=== PATIENT | female | born 1955 | race Caucasian/White ===

== ENCOUNTER 2017-02-06 09:16 | Day surgery (SDC) | payer MEDICARE, OTHER ==
--- NOTE | ~2017-02-06 | EGD ---
EGD REPORT [facility] [address] [place] [address] NAME: KATE SCOTT : [birth year] STATUS : REG [facility]#: [id number] AGE: 61 ADM/REG DATE : 02/06/17 MR#: [id number] REPORT SERV DATE: 02/06/17 DICTATED BY: JEAN-CLAUDE LAWS DATE: 02/06/17 REPORT STATUS : Draft [facility]ANS[facility] BY: [facility] DATE: 02/06/17 Endoscopy Center Patient Name: Kate Scott Date of : 1955 Attending MD: JEAN-CLAUDE LAWS MD Procedure Date No Time: 02/06/2017 Procedure: Colonoscopy Indications: High risk colon cancer surveillance: Personal history of colonic polyps, FH of Colon Cancer - multiple second-degree relatives Referring MD: NIR FORBES MD Medicines: as per anesthesia Complications: No immediate complications. Procedure: Pre-Anesthesia Assessment: - ASA Grade Assessment: III - A patient with severe systemic disease. After I obtained informed consent, the scope was passed under direct vision. Throughout the procedure, the patient's blood pressure, pulse, and oxygen saturations were monitored continuously. The [facility] [id number] was introduced through the anus and advanced to the cecum, identified by appendiceal orifice and ileocecal valve. The colonoscopy was performed without difficulty. The patient tolerated the procedure. The quality of the bowel preparation was fair. Findings: The perianal and digital rectal examinations were normal. A sessile polyp was found in the cecum. The polyp was 5 mm in size. The polyp was removed with a jumbo cold forceps. Resection and retrieval were complete. Internal hemorrhoids were found during endoscopy and were mild. Impression: - One 5 mm polyp in the cecum. Resected and retrieved. - Internal hemorrhoids. Recommendation: - Await pathology results. - Repeat colonoscopy for surveillance based on pathology results. Procedure Code(s): --- Professional --- 22633, Colonoscopy, flexible, proximal to splenic flexure; with biopsy, single or multiple Diagnosis Code(s): --- Professional --- EGD REPORT [address] [place] [address] NAME: KATE SCOTT : [birth year] STATUS : REG [place] PAT#: [id number] AGE: 61 ADM/REG DATE : 02/06/17 MR#: [id number] REPORT SERV DATE: 02/06/17 DICTATED BY: JEAN-CLAUDE LAWS DATE: 02/06/17 REPORT STATUS : Draft TRANSCRIBED BY: [employer] DATE: 02/06/17 D12.0, Benign neoplasm of cecum K64.8, Other hemorrhoids Z86.010, Personal history of colonic polyps Z80.0, Family history of malignant neoplasm of digestive organs CPT copyright 2013 [employer]. All rights reserved. The codes documented in this report are preliminary and upon auth specialist review may be revised to meet current compliance requirements. JEAN-CLAUDE LAWS MD 02/06/2017 11:35 AM This report has been signed electronically. Number of Addenda: 0 Note Initiated On: 02/06/2017 11:04 AM Scope Withdrawal Time 0 hours 9 minutes 51 seconds [address] [facility] [place] [id number]
[~2017-02-06 09:16] MED LIST: ACCUNE1 INH; ACCUNEB INH; ALBUTEROL0.63 MG/3 INH; AMB10 PO; AMITIZA24 PO; ASPIRIN PO; BACDS PO; BACTROCR TOP; BUM1 PO; CIP5 PO; COLCH6 PO; COLCRYS0.6 MG PO; COMBIVENT INH; CONSTULOSE PO; DURA50 TOP; FISH OIL; FISH-EPA1000 MG PO; FLAGIV500 PO; FLEX PO; FLORASTOR250 MG PO; GENERLAC PO; HALF81 PO; IMDUR30 PO; KADIAN60 MG PO; KAPIDEX60 MG PO; KDUR20 PO; KLOR-CON 1010 MEQ PO; KLOR-CON M2020 MEQ PO; L40 PO; LEVOTHYROXIN100 MCG PO; LEVOTHYROXIN137 MCG PO; LEXAPRO20 PO; LIDODERM TOP; LIOR10 PO; LIPITOR10 PO; LOP25 PO; MAGOX4 PO; MAX25 PO; METAMUCIL CAN7 OZ PO; MIRALAX POWDER1 PKT PO; MIRALAXPKT OR; NEXIUM40 PO; NITROSTAT0.4 MG; OCUVITE PO; P20 PO; PERCOCET 10/3251 TAB PO; PERCOCET1 TA4 PO; POTASSIUM PO; PREDNISONE DOSE PACK PO; PRESERVISION LUTEIN PO; PRIN20 PO; PROAIR HFA INH; PROBIOTIC PO; PROVENTSOL INH; PROVIGIL1 PO; PROVIGIL2 PO; SINGULAIR1 PO; SPIRIVA INH; STERAPRED DS10 MG; SUCR PO; SYMBICORT 160/41 INH INH; SYMBICORT 80/4.1 INH INH; SYN.025B PO; SYN075 PO; SYNTHROID137 MCG PO; TESS PO; TETRACYCLINE PO; TOPXL25 PO; TRAZ50 PO; TURMERIC PO; V5 PO; VALIUM10 MG PO; VANCOCIN HCL250 MG PO; VIT D; VITAMIN D1000 UNI1 PO; VITAMIN D31000 UNIT PO; Z300 PO; ZESTRIL20 MG PO; ZOFRAN4 PO; [UNRECOGNIZED DRUG - REMARK] PO
== END 2017-02-06 23:59 | disposition home or self-care (01) ==
LOC: DMU 09:16
PROVIDERS: Internal Medicine Gastroenterology
PROC: 0DBH8ZZ Excision of Cecum, Via Natural or Artificial Opening Endoscopic (ICD-10-PCS; principal; 2017-02-06 10:30)
DX: D12.0 Benign neoplasm of cecum (principal); K64.8 Other hemorrhoids; Z86.010 Personal history of colon polyps; I11.0 Hypertensive heart disease with heart failure; I50.9 Heart failure, unspecified; J44.9 Chronic obstructive pulmonary disease, unspecified; F41.9 Anxiety disorder, unspecified; F32.9 Major depressive disorder, single episode, unspecified; Z80.0 Family history of malignant neoplasm of digestive organs; Z88.8 Allergy status to other drugs, medicaments and biological substances
CPT/HCPCS: 88305